=== PATIENT | female | born 1995 | race Two or more races ===

== ENCOUNTER 2023-11-29 10:14 | Observation (INO) | payer MEDICAID, OTHER ==
[~2023-11-29] VITALS: Ht 165.1 cm; Wt 130.3 kg
[2023-11-29 10:40] VITALS: BP 132/69; PULSE 115; RESP 20; O2SAT 98
[2023-11-29] MEDS: BETAMETHASONE ACET (30mg/5ml) 5ml Vial 6mg/ml IM ONE (11:59)
[2023-11-29] MEDS: MAGNESIUM SULFATE 100 ML IV ONE (12:00)
[2023-11-29] MEDS: LACTATED RINGER'S 1,000 ML IV SCH (12:00)
[2023-11-29] MEDS: TERBUTALINE SULFATE 1 MG/ML 1ML VIAL SC ONE ×2 (12:10→12:47)
[2023-11-29 12:18] LABS: Basophils # (auto) 0.1 10 ^3/uL (0-0.2); Basophils % (auto) 0.3 % (0.0-2.0); Eosinophils # (auto) 0 10 ^3/uL (0-0.8); Eosinophils % (auto) 0.1 % (0.0-7.0); Hematocrit 39.5 % (36.0-46.0); Lymphocytes # (auto) 1.3 10 ^3/uL (0.4-5.4); Lymphocytes % (auto) 8.7 % (10.0-50.0); Mean Corpuscular Hemoglobin 28.5 pg (28.0-32.0); Mean Corpuscular Hgb Conc. 32.8 g/dL (32.0-36.0); Mean Corpuscular Volume 86.8 fL (80.0-100.0); Monocytes # (auto) 1.4 10 ^3/uL (0-1.3); Monocytes % (auto) 8.9 % (0.0-12.0); Neutrophils # (auto) 12.7 10 ^3/uL (1.6-8.6); Platelet Count (auto) 210 10^3/uL (140-450); Red Blood Cells 4.56 10^6/uL (4.0-5.20); Red Cell Distribution Width 12.6 % (11.8-14.3); White Blood Cell 15.4 10^3/uL (4.4-10.8)
[2023-11-29] MEDS: MAGNESIUM SULFATE 40MG/ML 1,000 ML IV SCH (12:18)
[2023-11-29 12:33] LABS: Urine Bacteria FEW /hpf (None Seen); Urine Blood 2+ /uL (Negative); Urine Clarity Turbid (Clear); Urine Mucus FEW (None Seen); Urine Protein, UAD 1+ (Negative); Urine Urobilinogen 2 mg/dL (Negative); Urine WBC 163 /hpf (0 - 5)
[2023-11-29 12:33] LABS: INR 0.97 (0.9-1.15); Partial Thromboplastin Time 28.6 SEC (24.5-34.5); Prothrombin Time 10.3 sec (9.3-11.8)
[2023-11-29 12:36] LABS: Urine Color Light-Yellow (Yellow)
[2023-11-29 12:38] LABS: Alanine Aminotransferase 14 U/L (7-40); Alkaline Phosphatase 88 U/L (46-116); Anion Gap 8 (5-15); Aspartate Aminotransferase 11 U/L (13-40); Bilirubin, Total 0.6 mg/dL (0.2-1.0); Calcium 9.3 mg/dL (8.7-10.4); Carbon Dioxide 24 mmol/L (20-30); Chloride 106 mmol/L (98-107); Glucose 82 mg/dL (74-106); Potassium 3.5 mmol/L (3.5-5.1); Sodium 138 mmol/L (136-145); Total Protein 7.6 g/dL (5.7-8.2); Uric Acid 3.9 mg/dL (3.1-7.8)
[2023-11-29 12:49] LABS: Amphetamine Screen, Urine Neg (NEGATIVE); Barbiturate Scree,Urine Neg (NEGATIVE); Benzodiazephine Screen, Urine Neg (NEGATIVE); Cannabinoid Screen, Urine Neg (NEGATIVE); Cocaine Screen, Urine Neg (NEGATIVE); Opiate Scree,Urine Neg (NEGATIVE); Phencyclidine Screen, Urine Neg (NEGATIVE)
[2023-11-29 12:52] LABS: Blood Urea Nitrogen < 5 mg/dL (9-23)
[2023-11-30 06:06] LABS: RPR Non Reactive (Non Reactive)
[2023-11-30 07:06] LABS: Rubella Antibodies, IgG 7.66 index (Immune >0.99)
== END 2023-11-29 12:32 | disposition home or self-care (01) ==
LOC: ER 10:18 → UNDOADMOB 10:53 → LDRP 10:53 → INTOOBSV 12:15 → OBSVTOIN 12:15 → LDRP 12:22 → UNDODISIN 13:15
PROVIDERS: ADMIT Obstetrics & Gynecology; ATTEND Obstetrics & Gynecology
DX: O60.02 Preterm labor without delivery, second trimester (principal); O99.212 Obesity complicating pregnancy, second trimester; E66.01 Morbid (severe) obesity due to excess calories; Z3A.27 27 weeks gestation of pregnancy; Z79.899 Other long term (current) drug therapy; Z68.42 Body mass index [BMI] 45.0-49.9, adult
CPT/HCPCS: 36415; 59025; 76805; 80053; 80307; 81001; 81002; 84550; 85025; 85610; 85730; 86592; 86703; 86762; 86803; 86850; 86900; 86901; 87340; 94760; 96365; 96372; 99285; G0378; J0702; J3105; J3475; 96366; 96374